=== PATIENT | female | born 2000 | race Caucasian/White ===

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

== ENCOUNTER → 2023-05-16 | Outpatient (CLI) | payer OTHER, SELFPAY ==
[2023-05-16 12:33] LABS: Absolute Lymphocyte Count 2.98 X10^3/uL (0.83-4.51); Absolute Neutrophil Count 2.8 X10^3/uL (2.0-7.7); Basophil# 0.07 X10^3/uL; Eosinophils% 1.5 % (0-5); Hematocrit 47.9 % (37-47); Hemoglobin 15.7 g/dL (12.0-15.0); Lymphocyte # 2.98 X10^3/ul (0.83-4.51); Lymphocyte % 44.5 % (19-41); Mean Corp Hgb Conc 32.8 g/dL (32-36); Mean Corpuscular Hgb 29.2 pg (27.0-32.0); Mean Corpuscular Volume 89.2 fL (81-99); Mean Platelet Vol. 10.2 fl (6.2-12.0); Monocyte# 0.76 X10^3/uL; Monocyte% 11.4 % (0-10); NRBC Flagged by Analyzer 0 % (0-5); Neutrophil # 2.76 X10^3/uL (2.7-7.7); Neutrophil % 41.3 % (47-70); Platelet Count 283 K/mm3 (150-450); RBC Distribution Width CV 12.4 % (11.6-14.6); RBC Distribution Width SD 40.5 fl (35.1-43.9); Red Blood Count 5.37 M/mm3 (4.2-5.4); White Blood Count 6.7 K/mm3 (4.4-11.0)
== END | disposition home or self-care (01) ==
PROVIDERS: PCP Nurse Practitioner Family; Visit Provider Nurse Practitioner Family
DX: R04.0 Epistaxis (principal)
CPT/HCPCS: 36415; 85025

== ENCOUNTER → 2023-06-27 | Outpatient (CLI) | payer OTHER, SELFPAY ==
--- OUTSIDE RECORDS SUMMARY | 2023-06-27 12:17 | XMS RPT_ITS | CCD ---
Author Name Unknown Address [address] [place] [address] Organization [facility] Care Team Providers Care Waiter/Waitress Cocktail Lounge Name Role Phone WAYT, NAILA P (PA) Referring Unavailable WAYT, NAILA P (PA) Referring Unavailable WAYT, NAILA P (PA) Referring Unavailable WAYT, NAILA P (PA) Referring Unavailable WAYT, NAILA P (PA) Referring Unavailable WAYT, NAILA P (PA) Referring Unavailable BRIANKTIFFANIE P Referring Unavailable Tiffanie Sandy Primary Care Provider Tiffanie Sandy MD Primary Care Provider Tiffanie Sandy MD Primary Care Provider Tiffanie Sandy MD Primary Care Provider Tiffanie Sandy MD Primary Care Provider [phone] Puneet Tavarez MD Attending [facility] Puneet Ledesma MD Attending [facility] Tiffanie Morrell MD Primary Care Provider TIFFANIE SANDY Primary Care Unavailable TIFFANIE SANDY Primary Care Unavailable TIFFANIE SANDY Primary Care Unavailable MELVI JANE Referring Unavailable MELVI JANE Attending Unavailable Allergies Allergy Classification Reported Allergen(s) Allergy Type Date of Onset Reaction(s) Facility (17 sources) Bupivacaine; Translations: [BUPIVACAINE] Drug Allergy 9 Anaphylaxis [facility] Work Phone: (17 sources) methylPREDNISolon e; Translations: [METHYLPREDNISOLO NE SODIUM SUCC] Drug Allergy 9 Anaphylaxis [facility] Work Phone: (17 sources) Sulfonamides (Antibiotic); Translations: [SULFA (SULFONAMIDE ANTIBIOTICS)] Drug Allergy 0 Rash [facility] Work Phone: (1 source) No Known Medication Allergies; Translations: [No Known Medication Allergies] Propensity to adverse reactions to drug (disorder) [facility] Repository Medications Completed/Discontinued Medications Medication Drug Class(es) Dates Sig (Normalized) Sig (Original) adapalene 0.001 mg/mg / benzoyl peroxide 0.025 mg/mg topical gel (16 sources) Retinoid adapalene-benzoy l peroxide 0.1-2.5 % glwp Apply to affected area once daily. 0 Active Problems Active Problems Problem Classification Problem Date Documented Date Episodic/Chronic Abdominal pain (1 source) Pain in female pelvis; Translations: [Pelvic and perineal pain] Episodic Contraceptive and procreative management (6 sources) Patient encounter status; Translations: [Encounter for surveillance of injectable contraceptive] Episodic Other female genital disorders (1 source) Abnormal uterine bleeding; Translations: [Other specified abnormal uterine and vaginal bleeding] Chronic Other female genital disorders (1 source) Vaginal odor; Translations: [Other specified noninflammatory disorders of vagina] Episodic Other nervous system disorders (1 source) Meralgia paresthetica, left lower limb; Translations: [Meralgia paresthetica, left lower limb] Onset: 02-25-2018 Chronic Other nervous system disorders (16 sources) Meralgia paresthetica of left leg; Translations: [Meralgia paresthetica, left lower limb] Onset: 02-25-2018 02-25-2018 Chronic Past or Other Problems Problem Classification Problem Date Documented Da te Episodic/Chronic Malaise and fatigue (18 sources) Other fatigue; Translations: [Weakness] Onset: 02-25-2018 02-25-2018 Episodic Results Test Name Value Interpretation Reference Range Facil ity Vital Signs Date Time Vital Sign Value Performing Clinician Margarita holman 11-28-2021 14:56-0400 Body weight 60.78 kg Latha Irizarry MD Work Phone: [facility] 11-28-2021 14:56-0400 Diastolic blood pressure 70 mm[Hg] Latha rIizarry MD Work Phone: [facility] 11-28-2021 14:56-0400 Systolic blood pressure 136 mm[Hg] Latha Irizarry MD Work Phone: [facility] 07-31-2021 09:06-0400 Body weight 63.96 kg Melvi Jane MD Work Phone: [facility] 07-31-2021 09:06-0400 Diastolic blood pressure 80 mm[Hg] Melvi Jane MD Work Phone: [facility] 07-31-2021 09:06-0400 Systolic blood pressure 120 mm[Hg] Melvi Jane MD Work Phone: [facility] Encounters Encounter Date Encounter Type Care Provider Facility Start: 06-13-2023 End: 06-13-2023 ambulatory TIFFANIE SANDY Facility:[facility] Start: 06-13-2023 End: 06-13-2023 Patient encounter procedure Nurse Payment Manager [facility] Aaliyah Work Phone: Obstetrics/Gynecology Procedures Date Procedure Procedure Detail Performing Clinician Start: 05-06-2019 Throat culture Plan of Treatment Date Care Activity Detail Author Start: 05-26-2023 Urine microalbumin profile DTaP,Tdap,Td Vaccine (7 - Td or Tdap) [facility] Start: 04-28-2023 Depression Assessment Depression Assessment [facility] Start: 2023 Pap Testing Pap Testing [facility] Start: 2023 Screening for malignant neoplasm of cervix Pap Testing [facility] Start: 12-27-2022 Covid-19 Vaccine ( season) Covid-19 Vaccine ( season) [facility] Start: 12-27-2022 Influenza vaccination [facility] Start: 11-28-2022 CHLAMYDIA SCREENING (18-) CHLAMYDIA SCREENING (18-) [facility] Start: 11-28-2022 GC (GONORRHEA) SCREENING (18-24) GC (GONORRHEA) SCREENING (18-24) [facility] Start: 11-28-2022 Screening for Chlamydia trachomatis Chlamydia Screening (18-24) [facility] Start: 04-28-2022 DEPRESSION ASSESSMENT DEPRESSION ASSESSMENT [facility] Start: 12-27-2021 Influenza vaccination INFLUENZA (#1) [facility] Start: 09-09-2021 COVID-19 VACCINE (3 - Booster for Pfizer series) COVID-19 VACCINE (3 - Booster for Pfizer series) [facility] Start: 06-06-2021 COVID-19 VACCINE (3 - Booster for Pfizer series) COVID-19 VACCINE (3 - Booster for Pfizer series) [facility] Start: 06-06-2021 COVID-19 VACCINE (3 - Pfizer series) COVID-19 VACCINE (3 - Pfizer series) [facility] Start: 04-28-2021 DEPRESSION ASSESSMENT DEPRESSION ASSESSMENT [facility] Start: 2021 Urine microalbumin profile [facility] Start: 05-06-2020 Adult depression screening assessment DEPRESSION SCREENING [facility] Start: 02-23-2020 CHLAMYDIA SCREENING (18-24) CHLAMYDIA SCREENING (18-24) [facility] Start: 02-23-2020 GC (GONORRHEA) SCREENING (18-24) GC (GONORRHEA) SCREENING (18-24) [facility] Start: 02-23-2020 HEPATITIS C SCREENING HEPATITIS C SCREENING [facility] Start: 02-23-2020 Hepatitis C screening Hepatitis C Screening [facility] Start: 02-23-2020 HIV SCREENING HIV SCREENING [facility] Start: 02-23-2020 HIV screening HIV Screening [facility] Start: 2018 Meningococcal B Vaccine: Consider Based On Risk (1 of 2 - Patient Seeks Protection) Meningococcal B Vaccine: Consider Based On Risk (1 of 2 - Patient Seeks Protection) [facility] Start: 2018 MENINGOCOCCAL B: Consider based on risk (1 of 2 - Patient Seeks Protection) MENINGOCOCCAL B: Consider based on risk (1 of 2 - Patient Seeks Protection) [facility] Start: 02-23-2016 PEDS TO ADULT TRANSITION ANNUAL ASSESSMENT PEDS TO ADULT TRANSITION ANNUAL ASSESSMENT [facility] Start: 2014 PEDS TO ADULT TRANSITION INITIAL DISCUSSION PEDS TO ADULT TRANSITION INITIAL DISCUSSION [facility] Start: 2013 HPV VACCINE (1 - 2-dose series) HPV VACCINE (1 - 2-dose series) [facility] Start: 02-23-2012 MENINGOCOCCAL B: Consider based on risk (1 of 2 - Risk Bexsero 2-dose series) MENINGOCOCCAL B: Consider based on risk (1 of 2 - Risk Bexsero 2-dose series) [facility] Start: 2011 HPV VACCINE (1 - 2-dose series) HPV VACCINE (1 - 2-dose series) [facility] Start: 2002 HEPATITIS B (1 of 3 - 3-dose series) HEPATITIS B (1 of 3 - 3-dose series) [facility] Start: 2002 Hepatitis B Vaccine (1 of 3 - 3-dose series) Hepatitis B Vaccine (1 of 3 - 3-dose series) [facility] BACTERIAL VAGINOSIS AMPLIFICATION BACTERIAL VAGINOSIS AMPLIFICATION Lab Routine Pelvic pain in female Vaginal odor 11/28/2021 3:30 PM EDT [facility] Work Phone: MOISES / TRICHOMONA S AMPLIFICATION MOISES / TRICHOMONAS AMPLIFICATION Lab Routine Screening examination for STD (sexually transmitted disease) Vaginal odor 11/28/2021 3:30 PM EDT [facility] Work Phone: Chlamydia trachomatis+Neisseria gonorrhoeae DNA [Presence] in Unspecified specimen by MALIKA with probe detection GC/CHLAMYDIA DNA DET Lab Routine Pelvic pain in female Screening examination for STD (sexually transmitted disease) Vaginal odor 11/28/2021 3:30 PM EDT [facility] Work Phone: PELVIC US WHI PELVIC US WHI An c Imaging Routine Pelvic pain in female Ordered: 11/28/2021 [facility] Work Phone: Immunizations Immunization Date Immunization Notes Care Provider Fa cili 04-05-2021 influenza virus vacc ine, unspecified formulation Melvi Jane MD Work Phone: [facility] Payers Date Payer Category Payer Private Health Insurance [id number] 2022 Private Health Insurance [id number] 2020 Unknown [employer] PPO [id number] 2020-Present [phone] [address] [place] [address] PPO [id number] 2020 Unknown SHERRY GOODRICH PPO [id number] 2020-Present [phone] [address] [place] [address] PPO [id number] 2002 Unknown [id number] 2002 Unknown [id number] Social History Date Type Detail Facility Start: 11-05-2010 End: 08-06-2022 Tobacco smoking status NHIS Never smoked tobacco [facility] Start: 11-05-2010 End: 08-06-2022 Tobacco use and exposure Smokeless tobacco non-user [facility] Start: 07-31-2021 End: 08-06-2022 Alcohol intake Current non-drinker of alcohol (finding) [facility] Start: 2002 Sex Assigned At Not on file [facility] Start: 07-21-2021 End: 11-27-2021 Exposure to SARS-CoV-2 (event) Not sure [facility] Start: 08-06-2022 End: 03-18-2023 History of Social function [facility] Start: 08-06-2022 End: 03-18-2023 Tobacco use panel [facility] PHQ2 Score 0 [facility] Start: 08-12-2018 Sexual orientation Heterosexual (olga montemayor) [facility] Work Phone: Start: 2002 Sex Assigned At Female [facility] Start: 06-09-2023 Gender identity Identifies as female gender (finding) [facility] Clinical Notes 07-30-2021 to 03-17-2023 Telephone Encounter - Yecenia Shelton LPN - 03/17/2023 2:01 PM ESTTelephone Encounter - Joyce Gonzalez - 03/17/2023 1:56 PM ESTTelephone Encounter - Yecenia Shelton LPN - 12/23/2022 3:47 PM EDT Note Date & Type Note Facility 03-17-2023 Miscellaneous Notes Patient in from college break 1 refill signed for tomorrow appt CC Aaliyah Shelton LPN Pharmacy verified in [facility] Patient has been identified by name and date of : Yes, Provider [place] Date 03/17/2023 Time 1:57pm Patient aware RX will be sent to pharmacy. No need to notify patient. Patient phones for refill(s): Requested Prescriptions Pending Prescriptions Disp Refills medroxyPROGESTERone (DEPO-PROVERA) 150 mg/mL 1 mL 4 Sig: Inject 1 mL intramuscularly every 12 weeks. Patient would like this sent to [facility]. Patient has an appt tomorrow 03/18/2023 with nurse for Depo injection. Date of last office visit : 08/06/2022 Date of next office visit : 03/18/2023 Last 2 Encounter Wt Readings: Date: Wt: 08/06/2022 145 lb (65.8 kg) 11/28/2021 134 lb (60.8 kg) (60 %, Z= 0.27)* Not applicable Please advise. Joyce Gonzalez documented in this encounter [facility] 12-23-2022 Miscellaneous Notes Request RX be sent to [facility] for appt tomorrow Yecenia Shelton LPN documented in this encounter [facility] 10-01-2022 Miscellaneous Notes Patient asks if we can send a note to school([employer] E[employer]) to verify that she gets this and her last injection date. Last depo was 07/16/22. Please fax to [phone] Attn: [facility] Thank you Helena Weems [facility] Pharmacy verified in Epic Patient has been identified by name and date of : Yes Patient aware RX will be sent to pharmacy. No need to notify patient. Patient phones for refill(s): Requested Prescriptions Pending Prescriptions Disp Refills medroxyPROGESTERone (DEPO-PROVERA) 150 mg/mL 1 mL 4 Sig: Inject 1 mL intramuscularly every 12 weeks. Date of last office visit : 08/06/2022 Date of next office visit : Visit date not found Last 2 Encounter Wt Readings: Date: Wt: 08/06/2022 145 lb (65.8 kg) 11/28/2021 134 lb (60.8 kg) (60 %, Z= 0.27)* Not applicable Please advise. Helena Weems Pss documented in this encounter [facility] 08-06-2022 Note HNO ID: [id number] Author: Melvi Jane MD Service: ? Author Type: Physician Type: Progress Notes Filed: 08/06/2022 1:25 PM Note Text: Mo is a 22 year old who presents for an annual gynecologic exam without complaints. Presents: alone Menses: on Depo-Provera. Contraception: Depo Provera HPV vaccine: Yes Last pap smear: never OB History T0 L0 SAB0 IAB0 Ectopic0 Multiple0 Live Births0 C Developer History LMP: 06/05/2020 (Approximate), Injection Age at Menarche: Age at First : Age at Menopause: C Developer History Comments: Sexual Activity: Yes; Male Contraception: Injection, Condom PAST MEDICAL HISTORY Diagnosis Date migraines Pleurisy Pneumonia PAST SURGICAL HISTORY Procedure Laterality Date NONE FAMILY HISTORY Problem Relation Age of Onset Breast Cancer Other 60 Maternal Great Aunt Ovarian cancer No Family History Uterine Cancer No Family History SOCIAL HISTORY Social History Tobacco Use Smoking status: Never Smokeless tobacco: Never Substance Use Topics Alcohol use: No Drug use: Never REVIEW OF SYSTEMS Abdomen: No bloating, early satiety, indigestion, or increased flatulence. No abdominal pain, nausea, vomiting, diarrhea, or constipation. Bladder: No dysuria, gross hematuria, urinary frequency, urinary urgency, or incontinence. Breast: No breast lumps, nipple d/c, overlying skin changes, redness or skin retraction. Allergies and current medication updated:Yes EXAM: BP 128/80 Wt 145 lb (65.8kg) LMP 06/05/2020 GENERAL: pleasant, in no apparent distress HEENT: Normocephalic, atraumatic, mucus membranes moist, and no lesions NECK: Supple, full range of motion, no adenopathy, and thyroid normal DERMATOLOGY: Normal, without lesions, non-icteric, and non-hirsute BREAST: deferred CHEST: Clear to auscultation, Normal inspiratory effort, Regular rate and rhythm, and No murmurs, clicks, rubs or gallops ABDOMEN: soft, non-tender, no masses, and no hepatosplenomegaly PELVIC: deferred BIMANUAL: deferred NEURO: alert and oriented x3,exam grossly non-focal EXTREMITIES: normal ASSESSMENT/PLAN: 1) Health maintenance: Pap starting at the age of 23. 2) Contraception: Depo Provera. Contraceptive options reviewed and information provided. 3) STD screening: Declined STD check. 4) Follow up one year or sooner as needed. Melvi Jane MD [facility] 07-15-2022 Miscellaneous Notes Patient is scheduled for her annual on 08/06/2022, but is due for her depo this week can a refill be sent in to the [facility] in [place]. documented in this encounter [facility] 04-19-2022 Miscellaneous Notes The following approved medication requests have been transmitted electronically. Requested Prescriptions Signed Prescriptions Disp Refills medroxyPROGESTERone (DEPO-PROVERA) 150 mg/mL 1 mL 4 Sig: Inject 1 mL intramuscularly every 12 weeks. Authorizing Provider: VALENTE SHIRLEY Electronically submitted to her pharmacy ([facility]). Valente Shirley MD Patient's Depo Prescription is at her [facility]. Please send one injection to [facility]. Patient is scheduled to come in on 04/23/22. Eva Garcia Pss documented in this encounter [facility] 11-28-2021 History of Present illness Narrative Milk Deliverer offered: Patient declines. Mo Morrow is a 21 year old female who presents for concerns regarding right sided pelvic pain that has been intermittent for the past few weeks. Pt reports that she does feel more bloated too. Pt reports she takes depo for BC and only has intermittent spotting. Pt reports pain is cramping in nature and typically only lasts a few minutes, motrin does help for pain. Pt denies constipation/diarrhea, N/V, fever, painful sex. Pt states pain got worse after tubing for the day. Pt reports at its worst she would rate pain 7/10. Pt reports today she has no pain. Pt reports always has vaginal odor that she describes as fishy- but denies discharge, or dysuria. Pt reports has never been screened for STDs. Pt offers no other concerns today. OB History T0 L0 SAB0 IAB0 Ectopic0 Multiple0 Live Births0 C Developer History LMP: 06/05/2020 (Approximate), Injection Age at Menarche: Age at First : Age at Menopause: C Developer History Comments: Sexual Activity: Yes; Male Contraception: Injection, Condom PAST MEDICAL HISTORY Diagnosis Date migraines NEGATIVE MEDICAL HISTORY Pleurisy Pneumonia PAST SURGICAL HISTORY Procedure Laterality Date NONE FAMILY HISTORY Problem Relation Age of Onset Breast Cancer Other 60 Maternal Great Aunt Ovarian cancer No Family History Uterine Cancer No Family History Social History Tobacco Use Smoking status: Never Smoker Smokeless tobacco: Never Used Substance Use Topics Alcohol use: No Drug use: Never Current Outpatient Medications Medication Sig medroxyPROGESTERone (DEPO-PROVERA) 150 mg/mL Inject 1 ml intramuscularly every 12 weeks. Dapsone 5 % gel APPLY TO THE ENTIRE FACE ONCE DAILY IN THE MORNING spironolactone (ALDACTONE) 50 mg tablet Take 50 mg by mouth. medroxyPROGESTERone (DEPO-PROVERA) 150 mg/mL Inject 1 mL intramuscularly every 12 weeks. naproxen (NAPROSYN) 500 mg tablet Take 1 tablet by mouth twice daily with meals. Take with food. iron polysaccharide complex (FERREX 150 ORAL) Take by mouth. (Patient not taking: Reported on 07/31/2021 ) adapalene-benzoyl peroxide (EPIDUO) 0.1-2.5 % glwp Apply to affected area once daily. Current Facility-Administered Medications Medication Dose Route Frequency medroxyPROGESTERone 150 mg injection (DEPO-PROVERA) 150 mg INTRAMUSCULAR every 12 weeks Allergies As of Date: 11/28/2021 Allergen Noted Reaction BUPIVACAINE 12/14/2018 Anaphylaxis SOLU-MEDROL [METHYLPREDNISOLONE S*12/14/2018 Anaphylaxis SULFA (SULFONAMIDE ANTIBIOTICS) 12/10/2019 Rash Fully Assessed 07/31/2021 REVIEW OF SYSTEMS Abdomen: some bloating- no other concerns today Bladder: no dysuria .. Expanded ROS: GENERAL: Negative for fever Allergies and current medication updated:Yes EXAM: BP 136/70 Wt 134 lb (60.8kg) LMP 06/05/2020 GENERAL: pleasant, female in no apparent distress HEENT: Normocephalic, atraumatic, mucus membranes moist and no lesions NECK: full range of motion DERMATOLOGY: Normal, without lesions and non-icteric ABD: Soft, non tender. Deep palpation of Psoas reproduced pain. Vaginal: normal discharge- cervix normal. No lesions. No vulvar or perineal lesions. Bimanual: no masses, non tender. Uterus freely mobile. NEURO: alert and oriented x3,exam grossly non-focal EXTREMITIES: normal ASSESSMENT AND PLAN: Encounter Diagnosis ICD-10-CM 1. Pelvic pain in female R10.2 PELVIC US WHI 2. Screening examination for STD (sexually transmitted disease) Z11.3 3. Vaginal odor N89.8 4. Reviewed vaginal probiotic - azo dual relief (yeast/odor) 5. Will call after pelvic ultrasound results 6. Likely Psoas muscle reviewed with patient- stretches reviewed. Medical Decision Making: Problems: Moderate: New problem with uncertain prognosis Data: Unique test(s) ordered: 3+ Medical Decision Making Level: 4 - Moderate Latha Flor MD documented in this encounter [facility] 07-31-2021 History of Present illness Narrative Med check completed for Depo Provera 150 mg IM by Enid Henry MA. Rosalind Betts, RN documented in this encounter [facility] 07-31-2021 History of Present illness Narrative Mo is a 21 year old who presents for an annual gynecologic exam without complaints. Menses: on Depo-Provera. Contraception: Depo Provera HPV vaccine: Yes Last Pap: N/A HPV: N/A History of abnormal pap: No Last mammogram: never OB History T0 L0 SAB0 IAB0 Ectopic0 Multiple0 Live Births0 C Developer History LMP: 06/05/2020 (Approximate), Injection Age at Menarche: Age at First : Age at Menopause: C Developer History Comments: Sexual Activity: Yes; Male Contraception: Injection, Condom PAST MEDICAL HISTORY Diagnosis Date migraines NEGATIVE MEDICAL HISTORY Pleurisy Pneumonia PAST SURGICAL HISTORY Procedure Laterality Date NONE FAMILY HISTORY Problem Relation Age of Onset Breast Cancer Other 60 Maternal Great Aunt Ovarian cancer No Family History Uterine Cancer No Family History SOCIAL HISTORY Social History Tobacco Use Smoking status: Never Smoker Smokeless tobacco: Never Used Substance Use Topics Alcohol use: No Drug use: Never REVIEW OF SYSTEMS Abdomen: No abdominal pain, nausea, vomiting, diarrhea, or constipation. No bloating, early satiety, indigestion, or increased flatulence. Bladder: No dysuria, gross hematuria, urinary frequency, urinary urgency, or incontinence. Breast: No breast lumps, nipple d/c, overlying skin changes, redness or skin retraction. Allergies and current medication updated:Yes EXAM: BP 120/80 Wt 141 lb (64.0kg) LMP 06/05/2020 GENERAL: pleasant, female in no apparent distress HEENT: Normocephalic, atraumatic, mucus membranes moist and no lesions NECK: Supple, full range of motion, no adenopathy and thyroid normal DERMATOLOGY: Normal, without lesions, non-icteric and non-hirsute BREAST: deferred CHEST: Clear to auscultation, Normal inspiratory effort, Regular rate and rhythm and No murmurs, clicks, rubs or gallops ABDOMEN: soft, non-tender, no masses and no hepatosplenomegaly PELVIC: deferred BIMANUAL: deferred RECTOVAGINAL: deferred. NEURO: alert and oriented x3,exam grossly non-focal EXTREMITIES: normal ASSESSMENT/PLAN: 1) Health maintenance: 2) Contraception: Depo Provera. Contraceptive options reviewed and information provided. 3) STD screening: Declined STD check. 4) Follow up one year or sooner as needed Melvi Jane MD documented in this encounter [facility] 07-30-2021 Miscellaneous Notes Patient given a Rx in April with 3 refills. Patient needs one depo shot to bring in with her on her annual 07/31 documented in this encounter [facility] [facility] documented [facility] this encounter [facility] Diagnosis Encounter for gynecological examination (general) (routine) without abnormal findings- Primary [facility] this [facility]* Diagnosis Pelvic pain in female- Primary Unspecified symptom associated with female genital organs Screening examination for STD (sexually transmitted disease) Screening examination for venereal disease Vaginal odor Unspecified symptom associated with female genital organs documented [facility] this encounter [facility]* Diagnosis DUB (dysfunctional uterine bleeding)- Primary Other disorder of menstruation and other abnormal bleeding from female genital tract documented in this encounter [facility]* Diagnosis Encounter for management and injection of depo-Provera- Primary Surveillance of other previously prescribed contraceptive method documented in this encounter [facility]* Diagnosis Encounter for Depo-Provera contraception- Primary Surveillance of other previously prescribed contraceptive method documented in this encounter [facility]* Diagnosis Encounter for Depo-Provera contraception- Primary Surveillance of other previously prescribed contraceptive method documented in this [facility] Diagnostic Procedure Only (Routine) - Authorized Specialty Diagnoses / Procedures Referred By Casimiro ennis Referred To Contact [facility] Diagnoses Pelvic pain in female Procedures PELVIC US WHI US PELVIC NONOBSTETRIC REAL-TIME IMAGE COMPLETE Latha Valles MD [address] [place] [address] [facility] [address] [place] [address] Referral ID Status Reason Start Date Expiration Date Visits Requested Visits Authorized [id number] Authorized Auto-Generat ed Referral 11/28/2021 11/28/2022 1 1 [facility] Summary Purpose Family History No Family History Records FoundNo Family History Records FoundNo Family History Records FoundNo Family History Records FoundNo Family History Records FoundNo Family History Records Found Advance Directives No Advanced Directives Records FoundNo Advanced Directives Records FoundNo Advanced Directives Records FoundNo Advanced Directives Records FoundNo Advanced Directives Records FoundNo Advanced Directives Records Found Medications Administered Section Active Administered Medications - up to 3 most recent administrations Medication Order MAR Action Action Date Dose Rate Site medroxyPROGESTERone 150 mg injection (DEPO-PROVERA) 150 mg, INTRAMUSCULAR, EVERY 12 WEEKS, 4 doses, First dose on Fri07/31/21 at 0930, Last dose on Fri04/09/22 at 0930, Hazardous Potential Reproductive Risk Drug: Use appropriate PPE. Given 07/31/2021 9:22 AM EDT 150 mg Deltoid, Right Active Administered Medications - up to 3 most recent administrations Medication Order MAR Action Action Date Dose Rate Site medroxyPROGESTERone 150 mg injection (DEPO-PROVERA) 150 mg, INTRAMUSCULAR, EVERY 12 WEEKS, 4 doses, First dose on Fri07/31/21 at 0930, Last dose on Fri04/09/22 at 0930, Hazardous Potential Reproductive Risk Drug: Use appropriate PPE. Given 11/01/2021 9:16 AM EDT 150 mg Deltoid, Left Active Administered Medications - up to 3 most recent administrations Medication Order MAR Action Action Date Dose Rate Site medroxyPROGESTERone 150 mg injection (DEPO-PROVERA) 150 mg, INTRAMUSCULAR, EVERY 12 WEEKS, 4 doses, First dose on Fri07/31/21 at 0930, Last dose on Fri04/09/22 at 0930, Hazardous Potential Reproductive Risk Drug: Use appropriate PPE. Given 04/23/2022 1:56 PM EST 150 mg Deltoid, Left Active Administered Medications - up to 3 most recent administrations Medication Order MAR Action Action Date Dose Rate Site medroxyPROGESTERone 150 mg injection (DEPO-PROVERA) 150 mg, INTRAMUSCULAR, EVERY 12 WEEKS, 4 doses, First dose on Fri03/18/23 at 1200, Last dose on Fri11/25/23 at 1200, Hazardous Potential Reproductive Risk Drug: Use appropriate PPE. Given 03/18/2023 11:00 AM EST 150 mg Deltoid, Left Reason for Referral Specialty Diagnoses / Procedures Referred By Casimiro ennis Referred To Contact [facility] Melvi Jane MD [address] [address] [place] [address] Referral ID Status Reason Start Date Expiration Date V isits Requested Visits Authorized [id number] Pending Review 03/18/2023 06/16/2023 4 4 Additional Source Comments INFORMATION SOURCE (unrecogn ized section and content) DATE CREATED AUTHOR AUTHOR'S ORGANIZ ATION 05/09/2019 [facility] DATE CREATED AUTHOR AUTHOR'S ORGANIZ ATION 05/30/2020 [facility] DATE CREATED AUTHOR AUTHOR'S ORGANIZ ATION 07/01/2021 [facility] DATE CREATED AUTHOR AUTHOR'S ORGANIZ ATION 07/21/2022 [facility] DATE CREATED AUTHOR AUTHOR'S ORGANIZ ATION 06/15/2023 [facility] Source Comments (unrecognize d section and content) In the event this informatio n is protected by the Federal Confidentiality of Alcohol and Drug Abuse Patient Records regulations: The Federal rules restrict any use of the information to criminally investigate or prosecute any alcohol or drug abuse patient.[facility] Inc[facility] the event this information is protected by the Federal Confidentiality of Alcohol and Drug Abuse Patient Records regulations: The Federal rules restrict any use of the information to criminally investigate or prosecute any alcohol or drug abuse patient.[facility] IncIn the event this information is protected by the Federal Confidentiality of Alcohol and Drug Abuse Patient Records regulations: The Federal rules restrict any use of the information to criminally investigate or prosecute any alcohol or drug abuse patient.[facility] IncIn the event this information is protected by the Federal Confidentiality of Alcohol and Drug Abuse Patient Records regulations: The Federal rules restrict any use of the information to criminally investigate or prosecute any alcohol or drug abuse patient.[facility] IncIn the event this information is protected by the Federal Confidentiality of Alcohol and Drug Abuse Patient Records regulations: The Federal rules restrict any use of the information to criminally investigate or prosecute any alcohol or drug abuse patient.[facility] IncIn the event this information is protected by the Federal Confidentiality of Alcohol and Drug Abuse Patient Records regulations: The Federal rules restrict any use of the information to criminally investigate or prosecute any alcohol or drug abuse patient.[facility] IncIn the event this information is protected by the Federal Confidentiality of Alcohol and Drug Abuse Patient Records regulations: The Federal rules restrict any use of the information to criminally investigate or prosecute any alcohol or drug abuse patient.[facility] IncIn the event this information is protected by the Federal Confidentiality of Alcohol and Drug Abuse Patient Records regulations: The Federal rules restrict any use of the information to criminally investigate or prosecute any alcohol or drug abuse patient.[facility] IncIn the event this information is protected by the Federal Confidentiality of Alcohol and Drug Abuse Patient Records regulations: The Federal rules restrict any use of the information to criminally investigate or prosecute any alcohol or drug abuse patient.[facility] IncIn the event this information is protected by the Federal Confidentiality of Alcohol and Drug Abuse Patient Records regulations: The Federal rules restrict any use of the information to criminally investigate or prosecute any alcohol or drug abuse patient.[facility] IncIn the event this information is protected by the Federal Confidentiality of Alcohol and Drug Abuse Patient Records regulations: The Federal rules restrict any use of the information to criminally investigate or prosecute any alcohol or drug abuse patient.[facility] IncIn the event this information is protected by the Federal Confidentiality of Alcohol and Drug Abuse Patient Records regulations: The Federal rules restrict any use of the information to criminally investigate or prosecute any alcohol or drug abuse patient.[facility] IncIn the event this information is protected by the Federal Confidentiality of Alcohol and Drug Abuse Patient Records regulations: The Federal rules restrict any use of the information to criminally investigate or prosecute any alcohol or drug abuse patient.[facility] IncIn the event this information is protected by the Federal Confidentiality of Alcohol and Drug Abuse Patient Records regulations: The Federal rules restrict any use of the information to criminally investigate or prosecute any alcohol or drug abuse patient.[facility] IncIn the event this information is protected by the Federal Confidentiality of Alcohol and Drug Abuse Patient Records regulations: The Federal rules restrict any use of the information to criminally investigate or prosecute any alcohol or drug abuse patient.[facility] IncIn the event this information is protected by the Federal Confidentiality of Alcohol and Drug Abuse Patient Records regulations: The Federal rules restrict any use of the information to criminally investigate or prosecute any alcohol or drug abuse patient.[facility] Reason for Visit (unrecogniz ed section and content) Specialty Diagnoses / Procedures Referred By Casimiro ennis Referred To Contact [facility] Diagnoses Encounter for surveillance of injectable contraceptive Procedures GREGROXYPROGESTERONE ACETATE Melvi Jane MD [address] [address] [facility] [address] [place] [address] Referral ID Status Reason Start Date Expiration Date Visits Re quested Visits Authorized [id number] Closed 03/18/2023 04/27/2023 99 99 Reason Comments Well Woman Reason Comments Refill Request Reason Comments Pelvic Pain Reason Comments DUB Reason Comments Prescription Refills Reason Onset Date Comments Refill Request 07/15/2022 Reason Onset Date Comments Refill Request 10/01/2022 Reason Onset Date Comments Refill Request 12/23/2022 Reason Onset Date Comments Refill Request 03/17/2023 Reason Comments Nst (Non Stress Test) Depo Provera Injection Specialty Diagnoses / Procedures Referred By Casimiro ennis Referred To Contact [facility] Diagnoses Encounter for surveillance of injectable contraceptive Depo Injection Procedures MEDROXYPROGESTERONE ACETATE INJECTION Self Payment Manager [facility] [address] [address] Referral ID Status Reason Start Date Expiration Date Visits Re quested Visits Authorized [id number] Closed 03/12/2023 04/27/2023 1 1 Reason Onset Date Comments Refill Request 06/09/2023 Care Teams (unrecognized sec tion and content) [employer] Relationship Specialty Start Date End Date Tiffanie Sandy [address] [address] PCP - General Pediatrics 11/05/10 [employer] Relationship Specialty Start Date End Date Tiffanie Sandy MD [address] [address] PCP - General Pediatrics 11/05/10 [employer] Relationship Specialty Start Date End Date Tiffanie Sandy MD [address] [address] PCP - General Pediatrics 11/05/10 [employer] Relationship Specialty Start Date End Date Tiffanie Sandy [place] [address] [place] [place] [address] PCP - General Pediatrics 11/05/10 [employer] Relationship Specialty Start Date End Date Tiffanie Sandy MD [address] [place] [address] PCP - General Pediatrics 11/05/10 [employer] Relationship Specialty Start Date End Date Tiffanie Sandy MD [address] [place] [address] PCP - General Pediatrics 11/05/10 [employer] Relationship Specialty Start Date End Date Tiffanie Sandy MD [address] [place] [place] [address] PCP - General Pediatrics 11/05/10 [employer] Relationship Specialty Start Date End Date Tiffanie Sandy MD [address] [place] [address] PCP - General Pediatrics 11/05/10 [employer] Relationship Specialty Start Date End Date Tiffanie Sandy MD [address] [place] [address] PCP - General Pediatrics 11/05/10 [employer] Relationship Specialty Start Date End Date Tiffanie Sandy MD [address] [place] [address] PCP - General Pediatrics 11/05/10 [employer] Relationship Specialty Start Date End Date Tiffanie Sandy MD [address] [place] [address] [place] [address] PCP - General Pediatrics 11/05/10 [employer] Relationship Specialty Start Date End Date Tiffanie Sandy MD [address] [place] [address] PCP - General Pediatrics 11/05/10 Active Administered Medications - up to 3 most recent administrations Administered Medications (un recognized section and content) FOR RECORDS PERTAINING TO PATIENTS WHO ARE OR HAVE BEEN ENROLLED IN A CHEMICAL DEPENDENCY/SUBSTANCEABUSE PROGRAM, SOME INFORMATION MAY BE OMITTED. This clinical summary was aggregated from multiple sources. Caution should be exercised in using it in the provision of clinical care. This summary normalizes information from multiple sources, and as a consequence, information in this document may materially change the coding, format and clinical context of patient data. In addition, data may be omitted in some cases. CLINICAL DECISIONS SHOULD BE BASED ON THE PRIMARY CLINICAL RECORDS. [facility]. provides no warranty or guarantee of the accuracy or completeness of information in this document.
[2023-06-27 15:47] LABS: Absolute Neutrophil Count 3.5 X10^3/uL (2.0-7.7); Basophil# 0.05 X10^3/uL; Basophil% 0.7 % (0-1); Eosinophil# 0.11 X10^3/uL; Eosinophils% 1.6 % (0-5); Hematocrit 45.9 % (37-47); Hemoglobin 15.2 g/dL (12.0-15.0); Mean Corp Hgb Conc 33.1 g/dL (32-36); Mean Corpuscular Hgb 29.9 pg (27.0-32.0); Mean Corpuscular Volume 90.4 fL (81-99); Mean Platelet Vol. 10.3 fl (6.2-12.0); Monocyte# 0.54 X10^3/uL; Monocyte% 7.6 % (0-10); NRBC Flagged by Analyzer 0 % (0-5); Neutrophil # 3.46 X10^3/uL (2.7-7.7); Platelet Count 281 K/mm3 (150-450); RBC Distribution Width CV 12.1 % (11.6-14.6); Red Blood Count 5.08 M/mm3 (4.2-5.4); White Blood Count 7.1 K/mm3 (4.4-11.0)
[2023-06-27 16:05] LABS: ALB/GLOB Ratio 1.5 RATIO (0.9-2.4); AST(SGOT) 13 U/L (15-37); Alanine Aminotransfer ALT/SGPT 25 U/L (13-56); Albumin, Serum 4.5 g/dL (3.2-5.0); Alkaline Phosphatase 72 U/L (45-117); Anion Gap 5 (5-15); BUN 14 mg/dL (7-18); BUN/Creat Ratio 13.6 RATIO (10-20); Calcium,Total 9.2 mg/dL (8.5-10.1); Chloride 108 mmol/L (98-107); Cholesterol 147 mg/dL (200); Creatinine, Serum 1.03 mg/dL (0.55-1.02); EST Glomerular Filtration Rate 72 mL/min (>60); Est Glom Filt Rate - Afr Amer 87 mL/min (>60); Globulin 3.1 g/dL (2.2-4.2); Glucose 84 mg/dL (74-106); High Density Lipoprotein 40 mg/dL; Magnesium 2.2 mg/dL (1.6-2.6); Potassium 3.9 mmol/L (3.5-5.1); Protein, Total 7.6 g/dL (6.4-8.2); Sodium Level 139 mmol/L (136-145); T4 Free Direct 1.32 ng/dL (0.76-1.46); Thyroid Stim Hormone (TSH) 1.45 uIU/mL (0.358-3.74); Triglycerides 84 mg/dL; Very Low Density Lipoprotein 17 mg/dL (5-40)
[2023-06-27 16:33] LABS: BNP,B-Type NATRIURETIC PEPTIDE 6.6 pg/mL (0-100)
== END | disposition home or self-care (01) ==
LOC: BFHLAB 11:55
PROVIDERS: PCP Nurse Practitioner Family; Referring Provider Nurse Practitioner Family; Visit Provider Nurse Practitioner Family
DX: R07.9 Chest pain, unspecified (principal)
CPT/HCPCS: 36415; 80053; 80061; 83735; 83880; 84439; 84443; 85025